=== PATIENT | female | born 1960 | race Caucasian/White ===

== ENCOUNTER 2016-10-23 13:06 | Emergency (ER) | payer MEDICAID ==
[~2016-10-23] VITALS: Ht 167.6 cm; Wt 59.0 kg
[2016-10-23 13:06] VITALS: BP 132/89; PULSE 82; RESP 18; TEMP 98.2; O2SAT 100
[~2016-10-23 13:06] MED LIST: LISI-600 PO; LISI10TA5
--- NOTE | 2016-10-23 13:06 | NUR ---
Patient triaged and placed in waiting room. VSS and patient appears in no acute distress at this time. Accompanied by SELF, awaiting available bed, and MD notified of need for MSE.
--- NOTE | 2016-10-23 13:09 | NUR ---
Dr. Sprague at bedside to assess pt.
--- NOTE | 2016-10-23 13:10 | NUR ---
Pt here for rash on face for a few weeks. Denied SOB or respiratory distress. Pt states she was working with cat liter and does not know if she came in contact with it. Pt awaiting for MD garsia.
--- NOTE | 2016-10-23 14:30 | NUR ---
Pt ambulated to restroom for urine sample.
[2016-10-23 14:57] LABS: BILIRUBIN,URINE NEGATIVE (NEGATIVE); BLOOD, URINE 2+ (NEGATIVE); CLARITY/URINE CLEAR (CLEAR); COLOR,URINE YELLOW (YELLOW); GLUCOSE,URINE NEGATIVE (NEGATIVE); KETONES,URINE NEGATIVE (NEGATIVE); LEUKOCYTE ESTERASE ,URINE 1+ (NEGATIVE); NITRITE, URINE NEGATIVE (NEGATIVE); PROTEIN URINE NEGATIVE (NEGATIVE); UROBILINOGEN,URINE 0.2 (0.2-1.0)
[2016-10-23 15:00] VITALS: BP 129/82; PULSE 80; RESP 17; TEMP 98.3; O2SAT 100
--- NOTE | 2016-10-23 15:00 | NUR ---
Patient given written and verbal discharge instructions and verbalizes understanding. ER MD discussed with patient the results and treatment provided. Patient in stable condition. ID arm band removed. Rx of Doxycline, Cephalexin, Mupirocin 2% toprial cream given. Opportunity for questions provided and answered.
[2016-10-23 15:16] LABS: BACTERIA,URINE MODERATE /HPF (None Seen)
[2016-10-23 15:17] LABS: METHAMPHETAMINES SCREEN,URINE POSITIVE (NEG <=500)
[2016-10-23 15:18] LABS: BARBITURATE, URINE NEGATIVE (NEG <=200); BENZODIAZEPINE, URINE NEGATIVE (NEG <=150); CANNABINOID, URINE NEGATIVE (NEG <=50); COCAINE, URINE NEGATIVE (NEG <=150); OPIATE, URINE NEGATIVE (NEG <=100); PHENCYCLIDINE SCREEN,URINE NEGATIVE (NEG <=25); UR TRICYCLIC ANTIDEPRESSANTS NEGATIVE (NEG <=300); URINE AMPHETAMINE POSITIVE (NEG <=500); URINE METHADONE NEGATIVE (NEG <=200); URINE OXYCODONE SCREEN NEGATIVE (NEG <=100); URINE PROPOXYPHENE SCREEN NEGATIVE (NEG <=300)
== END 2016-10-23 15:00 | disposition home or self-care (01) ==
LOC: SED 13:06
DX: L03.211 Cellulitis of face (principal); N39.0 Urinary tract infection, site not specified; R31.9 Hematuria, unspecified; F15.10 Other stimulant abuse, uncomplicated; I10 Essential (primary) hypertension
CPT/HCPCS: 80307; 81000-TC; 99284

== ENCOUNTER 2016-10-24 21:15 | Emergency (ER) | payer MEDICAID ==
[~2016-10-24] VITALS: Ht 167.6 cm; Wt 59.0 kg
--- NOTE | 2016-10-24 21:15 | NUR ---
Patient to [facility] for evaluation. Side rails up. Report given to SIMA IZAGUIRRE.
--- NOTE | 2016-10-24 21:20 | NUR ---
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 Denies pain, SOB, any respiratory distress. states she was working in her garden and came in contact with dirt and developed rashes, pt. was here yesterday for same problem, Pt awaiting for MD garsia.
--- NOTE | 2016-10-24 21:20 | NUR ---
DR. CANTU AT BEDSIDE EXAMINING THE PT.
[2016-10-24 21:24] VITALS: BP 177/80; PULSE 95; RESP 14; TEMP 98.3; O2SAT 96
[2016-10-24] MEDS ORDERED: IBUPROFEN 600 MG TABLET PO ONE (21:45)
[2016-10-24 21:50] VITALS: BP 152/82; PULSE 88; RESP 14; TEMP 98.3; O2SAT 96
--- NOTE | 2016-10-24 21:50 | NUR ---
Patient given written and verbal discharge instructions and verbalizes understanding. ER MD dR. CANTU discussed with patient the results and treatment provided. Patient in stable condition. ID arm band removed. Rx of MUPIROCIN given. Patient educated on pain management and to follow up with PMD. Pain Scale 0/10 Opportunity for questions provided and answered.
== END 2016-10-24 21:50 ==
LOC: SED 21:15
DX: Z02.89 Encounter for other administrative examinations (principal); S00.81XA Abrasion of other part of head, initial encounter; F17.200 Nicotine dependence, unspecified, uncomplicated; I10 Essential (primary) hypertension; M54.2 Cervicalgia; Y04.0XXA Assault by unarmed brawl or fight, initial encounter; Y93.89 Activity, other specified; Y92.89 Other specified places as the place of occurrence of the external cause; Y99.8 Other external cause status
CPT/HCPCS: 99283